=== PATIENT | female | born 1990 | race American Indian/Alaskan Native ===

== ENCOUNTER 2020-12-02 11:47 | Emergency (ER) | payer OTHER, MEDICAID ==
--- NOTE | 2020-12-02 12:32 | Emergency Department Report ---
HPI - General Chief Complaint: Vaginal Bleeding Time Seen by Provider: 12/02/20 12:23 - HPI HPI: This is a 30-year-old female presents to the emergency department with a complaint of a 3 to 4-day history of some vaginal spotting and some pelvic cramping, while 11 weeks . With this the patient is G2, P1. She spoke with her [employer], Dr. Vickie Johnson of [facility] [employer], and she was told to come to the emergency department for further evaluation. Patient has a history of PCOS and fibroids. She has not taken anything for symptoms prior to presentation. Patient also admits to some nausea without vomiting. She denies any fever, chest pain, back pain, lower extremity swelling, diarrhea, constipation. ED Past Medical Hx - Past Medical History Previous Medical History?: Yes Additional medical history: PCOS, Pscoriasis - Surgical History Past Surgical History?: Yes Additional Surgical History: C SECTION ED Review of Systems ROS: Stated complaint: 11 WEEKS SPOTTING CRAMPING Other details as noted in HPI Comment: All other systems reviewed and negative Constitutional: denies: chills, fever Eyes: denies: eye pain, vision change ENT: denies: ear pain, throat pain Respiratory: denies: cough, shortness of breath Cardiovascular: denies: chest pain, palpitations Gastrointestinal: denies: nausea, vomiting Genitourinary: other (Pelvic cramping, vaginal bleeding) Musculoskeletal: denies: back pain, arthralgia Skin: denies: rash, lesions Neurological: denies: headache, weakness Physical Exam - Physical Exam Vital Signs: Vital Signs 12/02/20 12:07 Temperature 99 F Pulse Rate 89 Respiratory 22 Rate Blood Pressure 145/97 [Right] O2 Sat by Pulse 99 Oximetry Physical Exam: GENERAL: The patient is well-developed well-nourished. HENT: Normocephalic. Atraumatic. Patient has moist mucous membranes. EYES: Extraocular motions are intact. NECK: Supple. Trachea is midline. CHEST/LUNGS: Clear to auscultation. There is no respiratory distress noted. HEART/CARDIOVASCULAR: Regular. There is no tachycardia. There is no murmur. ABDOMEN: Abdomen is soft, nontender. Patient has normal bowel sounds. SKIN: Skin is warm and dry. NEURO: The patient is awake, alert, and oriented. The patient is cooperative. The patient has no focal neurologic deficits. Normal speech. MUSCULOSKELETAL: There is no tenderness or deformity. There is no limitation range of motion. ED Course Vital Signs 12/02/20 12:07 Temperature 99 F Pulse Rate 89 Respiratory 22 Rate Blood Pressure 145/97 [Right] O2 Sat by Pulse 99 Oximetry ED Medical Decision Making - Lab Data Result diagrams: 12/02/20 13:23 12/02/20 13:23 Lab Results 12/02/20 12/02/20 12/02/20 Range/Units 13:23 13:23 13:44 WBC 6.9 (4.5-11.0) K/mm3 RBC 4.06 (3.65-5.03) M/mm3 Hgb 11.6 (10.1-14.3) gm/dl Hct 33.7 (30.3-42.9) % MCV 83 (79-97) fl MCH 28 (28-32) pg MCHC 34 (30-34) % RDW 16.0 H (13.2-15.2) % Plt Count 221 (140-440) K/mm3 Lymph % (Auto) 22.0 (13.4-35.0) % [place] % (Auto) 7.1 (0.0-7.3) % Eos % (Auto) 2.8 (0.0-4.3) % Baso % (Auto) 0.2 (0.0-1.8) % Lymph # (Auto) 1.5 (1.2-5.4) K/mm3 [place] # (Auto) 0.5 (0.0-0.8) K/mm3 Eos # (Auto) 0.2 (0.0-0.4) K/mm3 Baso # (Auto) 0.0 (0.0-0.1) K/mm3 Seg Neutrophils % 67.9 (40.0-70.0) % Seg Neutrophils # 4.7 (1.8-7.7) K/mm3 Sodium 135 L (137-145) mmol/L Potassium 4.1 (3.6-5.0) mmol/L Chloride 103.3 (98-107) mmol/L Carbon Dioxide 22 (22-30) mmol/L Anion Gap 14 mmol/L BUN 11 (7-17) mg/dL Creatinine 0.6 (0.6-1.2) mg/dL Estimated GFR > 60 ml/min BUN/Creatinine Ratio 18 % Glucose 86 (65-100) mg/dL Calcium 9.0 (8.4-10.2) mg/dL Total Bilirubin 0.20 (0.1-1.2) mg/dL AST 20 (5-40) units/L ALT 32 (7-56) units/L Alkaline Phosphatase 52 (35-129) units/L Total Protein 6.4 (6.3-8.2) g/dL Albumin 3.9 (3.9-5) g/dL Albumin/Globulin Ratio 1.6 % Blood Type O POSITIVE Ord Rhogam Gestat Weeks Rh pos WEEKS - Radiology Data Radiology results: report reviewed ULTRASOUND OBSTETRIC REASON FOR EXAM: , vag bleeding, cramping TECHNIQUE : Transabdominal sonographic evaluation was performed to evaluate a first rest . COMPARISON: None available. FINDINGS: FINDINGS: The pole, yolk sac, and gestational sac are normal in appearance. [place]-rump length: 5.18 cm. This corresponds with a gestational age of 11 weeks 6 days. heart rate: 161 bpm Perigestational hemorrhage: No evidence of perigestational hemorrhage on the provided images. Placenta: Placenta is posterior and low- lying. MATERNAL FINDINGS: Several uterine fibroids are present. The right ovary demonstrates a normal sonographic appearance. The left ovary is not visually. Cul-de-sac: There is no free fluid. IMPRESSION: Viable intrauterine . Gestational age is 12 weeks and 1 day by ultrasound. Recommend clinical screening and ultrasound follow-up in the second trimester to screen for anomalies. Posterior, low-lying placenta. Continued attention on follow-up is recommended. - Medical Decision Making This patient is about 11 weeks and presents with some mild pelvic cramping and vaginal spotting. The abdomen is soft, nontender to palpation and nontoxic in appearance. Transvaginal/ ultrasound shows a live intrauterine at about 12 weeks. Patient's labs have been mostly unremarkable including CBC, CMP, and the blood type is RhoGam positive. Therefore the patient does not need a RhoGam shot. She has good outpatient follow-up with [employer]. She has been instructed to continue with her care. She will return to the emergency department with any worsening of her symptoms or with any acute distress. Critical Care Time: No Critical care attestation.: If time is entered above; I have spent that time in minutes in the direct care of this critically ill patient, excluding procedure time. ED Disposition Clinical Impression: Threatened miscarriage Qualifiers: Weeks of gestation: 12 weeks Qualified Code(s): Z3A.12 - 12 weeks gestation of Disposition: DC-01 TO HOME OR SELFCARE Is pt being admited?: No Condition: Stable Instructions: Threatened Miscarriage, Vaginal Bleeding During , First Trimester Additional Instructions: Please follow-up with your [employer] in the next few days. Please continue with your care. Return to the emergency department with any worsening of your symptoms, new or concerning symptoms not addressed during this current emergency department visit, or with any acute distress. Referrals: OBGYN, Your [Other] - 2-3 Days Time of Disposition: 14:34
--- NOTE | 2020-12-02 13:29 | Ultrasound Report ---
ULTRASOUND OBSTETRIC REASON FOR EXAM: , vag bleeding, cramping TECHNIQUE: Transabdominal sonographic evaluation was performed to evaluate a first rest . COMPARISON: None available. FINDINGS: FINDINGS: The pole, yolk sac, and gestational sac are normal in appearance. [place]-rump length: 5.18 cm. This corresponds with a gestational age of 11 weeks 6 days. heart rate: 161 bpm Perigestational hemorrhage: No evidence of perigestational hemorrhage on the provided images. Placenta: Placenta is posterior and low-lying. MATERNAL FINDINGS: Several uterine fibroids are present. The right ovary demonstrates a normal sonographic appearance. The left ovary is not visually. Cul-de-sac: There is no free fluid. IMPRESSION: Viable intrauterine . Gestational age is 12 weeks and 1 day by ultrasound. Recommend clinica l screening and ultrasound follow-up in the second trimester to screen for anomalies. Posterior, low-lying placenta. Continued attention on follow-up is recommended. Signer Name: Adrian Ascencio MD Signed: 12/02/2020 1:25 PM Workstation Name: [id number]
[2020-12-02 13:50] LABS: Basophils % (Auto) 0.2 % (0.0-1.8); Eosinophils # (Auto) 0.2 K/mm3 (0.0-0.4); Eosinophils % (Auto) 2.8 % (0.0-4.3); Hematocrit 33.7 % (30.3-42.9); Hemoglobin 11.6 gm/dl (10.1-14.3); Lymphocytes # (Auto) 1.5 K/mm3 (1.2-5.4); Mean Corpuscular HGB Conc 34 % (30-34); Mean Corpuscular Volume 83 fl (79-97); Monocytes # (Auto) 0.5 K/mm3 (0.0-0.8); Monocytes % (Auto) 7.1 % (0.0-7.3); Platelet Count 221 K/mm3 (140-440); Red Blood Count 4.06 M/mm3 (3.65-5.03)
[2020-12-02 14:07] LABS: Alanine Aminotransferase 32 units/L (7-56); Albumin 3.9 g/dL (3.9-5); Blood Urea Nitrogen 11 mg/dL (7-17); Hemolysis Index 1
[2020-12-02 14:10] LABS: BUN/Creatinine Ratio 18
[2020-12-02 14:58] VITALS: BP 135/83
== END 2020-12-02 14:55 | disposition home or self-care (01) ==
LOC: ED 11:47
DX: O20.0 Threatened abortion (principal); Z88.8 Allergy status to other drugs, medicaments and biological substances; Z98.890 Other specified postprocedural states; Z3A.12 12 weeks gestation of pregnancy
CPT/HCPCS: 36415; 76801; 80053; 85025; 86900; 86901

== ENCOUNTER 2021-01-21 14:21 | Emergency (ER) | payer OTHER, MEDICAID | END 2021-01-21 15:07 | LOC: ED 14:21 | DX: O26.892 Other specified pregnancy related conditions, second trimester (principal); R51.9 Headache, unspecified; Z53.21 Procedure and treatment not carried out due to patient leaving prior to being seen by health care provider ==